=== PATIENT | male | born 1955 | race Caucasian/White ===

== ENCOUNTER 2022-12-21 09:27 | Emergency (ER) | payer MEDICARE, BC ==
[2022-12-21 09:49] VITALS: PULSE 72
[2022-12-21] MEDS ORDERED: Phenazopyridine 100 MG Tab PO ONE (10:01)
[2022-12-21] MEDS ORDERED: Nitrofurantoin Monohydrate/Macrocrystalline 100 MG Cap PO ONE (10:03)
[2022-12-21 13:33] VITALS: BP 147/89
== END 2022-12-21 10:27 | disposition home or self-care (01) ==
LOC: KA.ED 09:27
DX: N39.0 Urinary tract infection, site not specified (principal); E78.00 Pure hypercholesterolemia, unspecified; I10 Essential (primary) hypertension; K21.9 Gastro-esophageal reflux disease without esophagitis; E66.9 Obesity, unspecified; Z68.30 Body mass index [BMI] 30.0-30.9, adult; Z79.82 Long term (current) use of aspirin; Z79.899 Other long term (current) drug therapy; Z91.048 Other nonmedicinal substance allergy status
CPT/HCPCS: 51798; 81001; 87086; 99283; A9270-GY